=== PATIENT | male | born 1980 | race Caucasian/White ===

== ENCOUNTER 2017-01-10 22:07 | Emergency (ER) | payer MEDICAID ==
[2017-01-11] MEDS ORDERED: ALBUTEROL SULFATE HFA (90 MCG/PUFF) 8 GM MDI (1 MDI/ER DISP) IH ONE (01:44)
[2017-01-11] MEDS ORDERED: PREDNISONE 20 MG TABLET PO ONE (01:44)
[2017-01-11] MEDS ORDERED: AZITHROMYCIN 250 MG TABLET PO ONE (01:44)
--- NOTE | 2017-01-11 01:44 | ER Document Report ---
ED General - General Mode of Arrival: Ambulatory Information source: Patient TRAVEL OUTSIDE OF THE [place] IN LAST 30 DAYS: No - HPI Onset: Other - Refer to HPI notes - General Chief Complaint: Sore Throat Stated Complaint: THROAT PAIN Time Seen by Provider: 01/11/17 01:37 Notes: 36-year-old male presenting to the emergency department for productive cough, sore throat, and wheezing. Patient has had a cough over the past couple days with yellow and green sputum. Today patient has a sore throat. Patient also complains of some wheezing and states that he wheezes worse at night. Patient also states he possibly had a fever last few days that he did not take his temperature. Patient has a history of depression, anxiety, and craniofacial surgery after traumatic injury when he was younger. Patient smokes cigarettes and has no known allergies. (NILESH KUMAR) - Related Data Allergies/Adverse Reactions: No Known Allergies Allergy (Verified 04/04/13 20:12) Past Medical History - General Information source: Patient - Social History Smoking Status: Current Every Day Smoker Cigarette use (# per day): Yes - 1/2 ppd Family History: None Patient has suicidal ideation: No Patient has homicidal ideation: No GI Medical History: Reports: Hx Gastroesophageal Reflux Disease - NOT CURRENTLY TAKING MEDICATIONS Musculoskeltal Medical History: Reports Hx Arthritis Traumatic Medical History: Reports: Hx Traumatic Brain Injury Past Surgical History: Reports: Hx Abdominal Surgery - EXPLORATORY 7 YEARS OLD, Other - Craniofacial surgical repairs after traumatic injury - Immunizations Hx Diphtheria, Pertussis, Tetanus Vaccination: Yes - 2008 Review of Systems - Review of Systems Constitutional: No symptoms reported EENT: See HPI, Throat swelling Cardiovascular: No symptoms reported Respiratory: See HPI, Cough, Sputum, Wheezing Gastrointestinal: No symptoms reported Genitourinary: No symptoms reported Male Genitourinary: No symptoms reported Musculoskeletal: No symptoms reported Skin: No symptoms reported Hematologic/Lymphatic: No symptoms reported Neurological/Psychological: No symptoms reported -: Yes All other systems reviewed and negative Physical Exam - Vital signs Interpretation: Tachycardic - Vital signs Vitals: Temp Pulse Resp BP Pulse Ox 98.2 F 119 H 18 126/87 H 97 01/10/17 22:09 01/10/17 22:09 01/10/17 22:09 01/10/17 22:09 01/10/17 22:09 - Notes Notes: GENERAL: Alert, interacts well. No acute distress. HEAD: Normocephalic, atraumatic. EYES: Pupils equal, round, and reactive to light. Extraocular movements intact. ENT: Oral mucosa moist, tongue midline, oropharynx has some diffuse erythema and mild swelling. NECK: Full range of motion. Supple. Trachea midline. LUNGS: Wheezing and rhonchi bilaterally but worse on the left than the right. No respiratory distress. HEART: Regular rate and rhythm. No murmurs, gallops, or rubs. ABDOMEN: Soft, non-tender. Non-distended. Bowel sounds present in all 4 quadrants. EXTREMITIES: Moves all 4 extremities spontaneously. NEUROLOGICAL: Alert and oriented x3. Normal speech. PSYCH: Normal affect, normal mood. SKIN: Warm, dry, normal turgor. No rashes or lesions noted. (NILESH KUMAR) Discharge - Discharge Clinical Impression: Bronchitis with bronchospasm Pharyngitis Qualifiers: Pharyngitis/tonsillitis etiology: unspecified etiology Qualified Code(s): J02.9 - Acute pharyngitis, unspecified Additional Instructions: Bronchitis with Bronchospasm (Wheezing): You have bronchitis with bronchospasm (wheezing). Sometimes people develop wheezing with a chest cold. This occurs either because of an underlying tendency toward asthma or because the virus itself irritates the bronchial tubes. This irritation causes cough, shortness of breath, and wheezing. Emergency treatment of bronchospasm may include adrenaline shots or bronchodilator aerosol. You may feel lightheaded and have a rapid pulse for an hour or two. Rest and get plenty of fluids. At home, we'll treat you with a bronchodilator inhaler. Corticosteroids may be required for some patients. Until you recover, avoid chemical fumes, dusts, pollens, and exercising in very cold or dry air. If you smoke, stop now! Most cases of bronchitis get better without antibiotics. We prescribe antibiotics when we believe bacteria are damaging your airways, or if there's high risk the bronchitis will worsen into pneumonia. Increase your fluid intake. A cool mist humidifier may make your lungs more comfortable. An expectorant (cough medicine that loosens phlegm) can help. Repeated episodes of bronchitis and bronchospasm may result in lung damage -- for example, chronic bronchitis, recurrent pneumonias, or emphysema. If you develop a fever, increased wheezing, chest pain, or severe shortness of breath, you should contact the doctor immediately. Sore Throat: Sore throats may be caused by viruses, bacteria, or fungi. Most are due to a virus, and must get better on their own. Bacterial sore throats, particularly those due to "strep," need treatment with antibiotics. If an antibiotic is prescribed, be sure to take the medication for a full 10 days. Failure to take the antibiotic can result in complications such as rheumatic fever. Sometimes, an injection of antibiotics is given instead of pills or liquid. This single "shot" is equal in effectiveness to the oral medication. To relieve symptoms, take acetaminophen for pain. Sip clear liquids frequently, or eat popsicles or ice chips. Anesthetic sprays or lozenges may help. Make sure the air in the room is not too dry. Avoid using decongestants or antihistamines. Call the doctor if there is no improvement in two days, or if you have difficulty breathing, increasing throat pain, high fever, rash, or frequent vomiting. START THE AZITHROMYCIN PRESCRIPTION ON SATURDAY MORNING. USE THE INHALER--2 PUFFS EVERY 4 HOURS FOR WHEEZING NEEDED. TAKE THE PREDNISONE PRESCRIBED. TRY ROBITUSSIN-DM FOR COUGH CONTROL. DRINK PLENTY OF FLUIDS. REST. STOP SMOKING. FOLLOW UP WITH YOUR DOCTOR IF NOT IMPROVING. RETURN TO THE EMERGENCY ROOM IF ANY NEW OR WORSENING SYMPTOMS. Prescriptions: Azithromycin [Zithromax 250 mg Tablet] 250 mg PO DAILY #4 tablet Prednisone [Deltasone 10 mg Tablet] 10 mg PO ASDIR PRN #21 tablet PRN Reason: Referrals: MAYLIN SIM MD [Primary Care Provider] - Follow up as needed Scribe Attestation: 01/11/17 01:49 I personally performed the services described in the documentation, reviewed and edited the documentation which was dictated to the scribe in my presence, and it accurately records my words and actions. (LISA JACK) Scribe Documentation - Scribe Written by Jose:: Jose Karimi, 01/11/2017 2:00 acting as scribe for :: Dereck
[2017-01-11 02:01] VITALS: BP 124/63
== END 2017-01-11 02:12 | disposition home or self-care (01) ==
LOC: ER 22:07
DX: J40 Bronchitis, not specified as acute or chronic (principal); J02.9 Acute pharyngitis, unspecified; R05 Cough; R06.2 Wheezing; F32.9 Major depressive disorder, single episode, unspecified; F41.9 Anxiety disorder, unspecified; F17.210 Nicotine dependence, cigarettes, uncomplicated
CPT/HCPCS: 99283; 87070; 87880; 87077; Q0144; J7512; J3490

== ENCOUNTER 2018-10-12 22:13 | Emergency (ER) | payer MEDICAID ==
[2018-10-12 22:25] VITALS: BP 127/84
--- NOTE | 2018-10-13 00:51 | ER Document Report ---
HPI - HPI Patient complains to provider of: Skin lesion Time Seen by Provider: 10/13/18 00:38 Onset: Other - 3 years Onset/Duration: Persistent Quality of pain: Achy Pain Level: 3 Context: Patient complains of mildly tender lump to abdomen that is been there for the pa st 3 years. Patient is here with multiple family members who are being seen as well and it was convenient for him to be seen today. Patient denies any fever. Associated Symptoms: Other - Tender lump to abdomen Exacerbated by: Denies Relieved by: Denies Similar symptoms previously: No Recently seen / treated by doctor: No - ROS ROS below otherwise negative: Yes Systems Reviewed and Negative: Yes All other systems reviewed and negative - CONSTITUTIONAL Constitutional: DENIES: Fever, Chills - NEURO Neurology: DENIES: Weakness - GASTROINTESTINAL Gastrointestinal: DENIES: Abdominal Pain - DERM Skin Color: Normal Skin Problems: Cyst Past Medical History - General Information source: Patient - Social History Smoking Status: Current Every Day Smoker Smoking Education Provided: Yes Frequency of alcohol use: None Drug Abuse: None Occupation: Construction Lives with: Family Family History: None Patient has suicidal ideation: No Patient has homicidal ideation: No Renal/ Medical History: Denies: Hx Peritoneal Dialysis GI Medical History: Reports: Hx Gastroesophageal Reflux Disease - NOT CURRENTLY TAKING MEDICATIONS Musculoskeletal Medical History: Reports Hx Arthritis Traumatic Medical History: Reports: Hx Traumatic Brain Injury Past Surgical History: Reports: Hx Abdominal Surgery - EXPLORATORY 7 YEARS OLD, Hx Neurologic Surgery, Other - Craniofacial surgical repairs after traumatic inj ury - Immunizations Hx Diphtheria, Pertussis, Tetanus Vaccination: Yes - 2008 Vertical Provider Document - CONSTITUTIONAL Agree With Documented VS: Yes Exam Limitations: No Limitations General Appearance: WD/WN, No Apparent Distress - INFECTION CONTROL TRAVEL OUTSIDE OF THE [place] IN LAST 30 DAYS: No - HEENT HEENT: Atraumatic, Normocephalic - NECK Neck: Normal Inspection - RESPIRATORY Respiratory: Breath Sounds Normal, No Respiratory Distress - CARDIOVASCULAR Cardiovascular: Regular Rate, Regular Rhythm - MUSCULOSKELETAL/EXTREMETIES Musculoskeletal/Extremeties: MAEW - NEURO Level of Consciousness: Awake, Alert, Appropriate Motor/Sensory: No Motor Deficit - DERM Integumentary: Warm, Dry. negative: Abscess Adult Front & Back Diagram: 1 - 1 cm mobile cystic lesion to abdomen. No overlying erythema. Course - Re-evaluation Re-evalutation: 10/13/18 00:50 Patient with cystic lesion to the abdominal wall, no concern for drainable abscess at this time. - Vital Signs Vital signs: Temp Pulse Resp BP Pulse Ox 98.3 F 55 L 16 127/84 H 96 10/12/18 22:23 10/12/18 22:23 10/12/18 22:23 10/12/18 22:23 10/12/18 22:23 Discharge - Discharge Clinical Impression: Subcutaneous cyst Condition: Stable Disposition: HOME, SELF-CARE Additional Instructions: Return immediately for any new or worsening symptoms Followup with your primary care provider, call tomorrow to make a followup appointment Follow-up with a general surgeon for excisional management of your cystic lesion. Referrals: MAYLIN SIM MD [Primary Care Provider] - Follow up as needed [facility] [Provider Group] - Follow up in 3-5 days
== END 2018-10-13 00:55 | disposition home or self-care (01) ==
LOC: ER 22:13
DX: L72.8 Other follicular cysts of the skin and subcutaneous tissue (principal); F17.200 Nicotine dependence, unspecified, uncomplicated
CPT/HCPCS: 99282